=== PATIENT | female | born 1965 | race Caucasian/White ===

== ENCOUNTER 2019-11-04 19:08 | Emergency (ER) | payer MEDICAID ==
[~2019-11-04] VITALS: Ht 160 cm; Wt 63.0 kg
[~2019-11-04 19:08] MED LIST: HYDR-4833
[2019-11-04 19:31] VITALS: BP 139/88
[2019-11-04 20:38] LABS: Urine Bacteria NONE SEEN /hpf (None Seen); Urine Blood Negative /uL (Negative); Urine Specific Gravity 1.006 (1.001-1.035); Urine WBC 10 /hpf (0 - 5)
[2019-11-04 22:53] LABS: Eosinophils # (auto) 0.1 10 ^3/uL (0-0.8)
[2019-11-04 22:55] LABS: Basophils # (auto) 0.1 10 ^3/uL (0-0.2); Basophils % (auto) 1.4 % (0.0-2.0); Eosinophils % (auto) 1.4 % (0.0-7.0); Hematocrit 40.2 % (36.0-46.0); Hemoglobin 12.7 g/dL (12.2-16.2); Lymphocytes # (auto) 1.4 10 ^3/uL (0.4-5.4); Lymphocytes % (auto) 23.6 % (10.0-50.0); Mean Corpuscular Hemoglobin 23.4 pg (28.0-32.0); Mean Corpuscular Hgb Conc. 31.5 g/dL (32.0-36.0); Mean Corpuscular Volume 74.4 fL (80.0-100.0); Monocytes # (auto) 0.3 10 ^3/uL (0-1.3); Monocytes % (auto) 5.6 % (0.0-12.0); Neutrophils # (auto) 4.1 10 ^3/uL (1.6-8.6); Nucleated Red Blood Cells % 0.1 %; Platelet Count (auto) 237 10^3/uL (140-450); Red Blood Cells 5.41 10^6/uL (4.0-5.20)
[2019-11-04 23:07] LABS: Red Cell Distribution Width 26.3 % (11.8-14.3)
[2019-11-04 23:08] LABS: INR 1.02 (0.9-1.15); Partial Thromboplastin Time 30.1 sec (23.64-32.05)
[2019-11-04 23:09] LABS: Albumin 4.3 g/dL (3.4-5.0); Calcium 9.6 mg/dL (8.5-10.1); Potassium 4.5 mmol/L (3.5-5.1)
[2019-11-04 23:13] LABS: BUN/Creatinine Ratio 11.8; Bilirubin, Total 0.3 mg/dL (0.2-1.0); Total Protein 9.3 g/dL (6.4-8.2)
== END 2019-11-04 22:55 | disposition home or self-care (01) ==
LOC: ER 19:08
DX: S86.911A Strain of unspecified muscle(s) and tendon(s) at lower leg level, right leg, initial encounter (principal); N39.0 Urinary tract infection, site not specified; M54.40 Lumbago with sciatica, unspecified side; Z90.49 Acquired absence of other specified parts of digestive tract; X58.XXXA Exposure to other specified factors, initial encounter; Y93.89 Activity, other specified; Y92.89 Other specified places as the place of occurrence of the external cause; Y99.8 Other external cause status
CPT/HCPCS: 36415; 80053; 81001; 85025; 85610; 85730; 93971

== ENCOUNTER 2020-09-11 10:22 | Emergency (ER) | payer MEDICAID ==
[~2020-09-11] VITALS: Ht 160 cm; Wt 72.6 kg
[2020-09-11] VITALS (9 sets, daily range): BP systolic 104–130; BP diastolic 55–70
[2020-09-11 10:54] LABS: Basophils # (auto) 0.1 10 ^3/uL (0-0.2); Eosinophils # (auto) 0.1 10 ^3/uL (0-0.8); Monocytes # (auto) 1.1 10 ^3/uL (0-1.3)
[2020-09-11 10:55] LABS: Basophils % (auto) 0.8 % (0.0-2.0); Eosinophils % (auto) 0.5 % (0.0-7.0); Lymphocytes # (auto) 1.3 10 ^3/uL (0.4-5.4); Lymphocytes % (auto) 9.6 % (10.0-50.0); Mean Corpuscular Hemoglobin 18.8 pg (28.0-32.0); Mean Corpuscular Hgb Conc. 29.4 g/dL (32.0-36.0); Mean Corpuscular Volume 63.9 fL (80.0-100.0); Monocytes % (auto) 8.1 % (0.0-12.0); Neutrophils # (auto) 10.6 10 ^3/uL (1.6-8.6); Platelet Count (auto) 459 10^3/uL (140-450); Red Blood Cells 3.13 10^6/uL (4.0-5.20); Red Cell Distribution Width 18.7 % (11.8-14.3); White Blood Cell 13.1 10^3/uL (4.4-10.8)
[2020-09-11 10:57] LABS: Hemoglobin 5.9 g/dL (12.2-16.2)
[2020-09-11 11:12] LABS: Albumin 2.9 g/dL (3.4-5.0); Calcium 8.3 mg/dL (8.5-10.1); Potassium 3.6 mmol/L (3.5-5.1)
[2020-09-11 11:17] LABS: BUN/Creatinine Ratio 15.4; Bilirubin, Total 0.2 mg/dL (0.2-1.0)
[2020-09-11 14:53] LABS: Urine Bacteria FEW /hpf (None Seen); Urine Blood Negative /uL (Negative); Urine Specific Gravity 1.006 (1.001-1.035); Urine WBC 2 /hpf (0 - 5)
[2020-09-11 19:18] LABS: Hematocrit 28.3 % (36.0-46.0); Hemoglobin 8.8 g/dL (12.2-16.2)
== END 2020-09-11 22:10 | disposition left against medical advice (07) ==
LOC: ER 10:22
DX: D64.9 Anemia, unspecified (principal); R55 Syncope and collapse; Z90.49 Acquired absence of other specified parts of digestive tract
CPT/HCPCS: 36415; 36430; 70450; 80053; 81001; 85014; 85018; 85025; 86850; 86900; 86901; 86920; 93005; 99285; P9016

== ENCOUNTER 2020-11-29 08:00 | Emergency (ER) | payer MEDICAID ==
[~2020-11-29] VITALS: Ht 160 cm; Wt 72.6 kg
[2020-11-29 08:32] LABS: Basophils # (auto) 0.1 10 ^3/uL (0-0.2); Eosinophils # (auto) 0.1 10 ^3/uL (0-0.8)
[2020-11-29] MEDS ORDERED: FERROUS SULFATE 300 MG/5 ML ORAL LIQ GT ONE (08:45)
[2020-11-29 08:47] LABS: Albumin 2.8 g/dL (3.4-5.0); Anion Gap 9 (5-15); BUN/Creatinine Ratio 12.3; Blood Urea Nitrogen 9 mg/dL (7-18); Calcium 8.2 mg/dL (8.5-10.1); Carbon Dioxide 22 mmol/L (21-32); Chloride 107 mmol/L (98-107); GFR African American 106 mL/min; GFR Non-African American 88 mL/min; Glucose 130 mg/dL (74-106); Potassium 3.4 mmol/L (3.5-5.1); Sodium 138 mmol/L (136-145)
[2020-11-29 08:52] LABS: Alanine Aminotransferase 12 U/L (13-56); Alkaline Phosphatase 128 U/L (45-117); Aspartate Aminotransferase 10 U/L (15-37); Bilirubin, Total 0.2 mg/dL (0.2-1.0); Total Protein 7.2 g/dL (6.4-8.2)
[2020-11-29] MEDS ORDERED: SODIUM CHLORIDE 0.9% 1,000 ML IV ONE ×2 (09:00)
[2020-11-29 09:06] LABS: Basophils % (auto) 0.6 % (0.0-2.0); Hematocrit 23.7 % (36.0-46.0); Lymphocytes # (auto) 2.1 10 ^3/uL (0.4-5.4); Mean Corpuscular Hemoglobin 20.1 pg (28.0-32.0); Mean Corpuscular Hgb Conc. 29.4 g/dL (32.0-36.0); Mean Corpuscular Volume 68.4 fL (80.0-100.0); Monocytes # (auto) 0.8 10 ^3/uL (0-1.3); Monocytes % (auto) 6.5 % (0.0-12.0); Neutrophils # (auto) 8.7 10 ^3/uL (1.6-8.6); Neutrophils % (auto) 73.9 % (37.0-80.0); Nucleated Red Blood Cells % 0.1 %; Red Blood Cells 3.47 10^6/uL (4.0-5.20); White Blood Cell 11.8 10^3/uL (4.4-10.8)
[2020-11-29 09:09] LABS: Red Cell Distribution Width 21.1 % (11.8-14.3)
[2020-11-29 11:32] VITALS: BP 124/65
[2020-11-29 11:47] VITALS: BP 118/70
[2020-11-29 12:48] VITALS: BP 117/67
== END 2020-11-29 13:06 | disposition home or self-care (01) ==
LOC: ER 08:00
DX: D64.9 Anemia, unspecified (principal); Z90.49 Acquired absence of other specified parts of digestive tract; Z79.899 Other long term (current) drug therapy; Z88.8 Allergy status to other drugs, medicaments and biological substances
CPT/HCPCS: 36415; 36430; 80053; 84484; 85025; 86850; 86900; 86901; 86920; 93005; 96360; 96361; 99285; J7030; P9016

== ENCOUNTER 2021-02-02 09:51 | Emergency (ER) | payer MEDICAID ==
[~2021-02-02] VITALS: Ht 160 cm; Wt 70.8 kg
[2021-02-02 10:51] LABS: Eosinophils # (auto) 0.1 10 ^3/uL (0-0.8); Eosinophils % (auto) 0.6 % (0.0-7.0); Lymphocytes % (auto) 9.2 % (10.0-50.0); Nucleated Red Blood Cells % 0.1 %; Red Blood Cells 3.25 10^6/uL (4.0-5.20)
[2021-02-02 10:53] LABS: Basophils # (auto) 0.1 10 ^3/uL (0-0.2); Hematocrit 21.2 % (36.0-46.0); Mean Corpuscular Hemoglobin 19.2 pg (28.0-32.0); Mean Corpuscular Hgb Conc. 29.4 g/dL (32.0-36.0); Mean Corpuscular Volume 65.3 fL (80.0-100.0); Monocytes # (auto) 0.9 10 ^3/uL (0-1.3); Monocytes % (auto) 8.2 % (0.0-12.0); Neutrophils # (auto) 8.5 10 ^3/uL (1.6-8.6); White Blood Cell 10.5 10^3/uL (4.4-10.8)
[2021-02-02 11:01] LABS: Red Cell Distribution Width 23.4 % (11.8-14.3)
[2021-02-02 11:04] LABS: Hemoglobin 6.3 g/dL (12.2-16.2)
[2021-02-02 11:06] LABS: Albumin 2.6 g/dL (3.4-5.0); Amylase 17 U/L (25-115); Anion Gap 7 (5-15); Blood Urea Nitrogen 8 mg/dL (7-18); Calcium 8.6 mg/dL (8.5-10.1); Carbon Dioxide 24 mmol/L (21-32); Chloride 106 mmol/L (98-107); Glucose 133 mg/dL (74-106); Lipase 51 U/L (73-393); Potassium 3.6 mmol/L (3.5-5.1); Sodium 137 mmol/L (136-145)
[2021-02-02 11:11] LABS: Alanine Aminotransferase 12 U/L (13-56); Alkaline Phosphatase 115 U/L (45-117); Aspartate Aminotransferase 10 U/L (15-37); BUN/Creatinine Ratio 10.1; Bilirubin, Total 0.2 mg/dL (0.2-1.0); GFR African American 97 mL/min; GFR Non-African American 80 mL/min; Total Protein 7.3 g/dL (6.4-8.2)
[2021-02-02 12:29] VITALS: BP 110/54
[2021-02-02 12:45] VITALS: BP 107/56
[2021-02-02] MEDS ORDERED: HYDROcodone-ACET 5/325MG TAB PO ONE ×2 (13:45→18:30)
[2021-02-02 15:13] VITALS: BP 117/62
[2021-02-02 15:41] VITALS: BP 117/62
[2021-02-02 15:56] VITALS: BP 108/54
[2021-02-02 19:41] VITALS: BP 119/65
== END 2021-02-02 19:45 | disposition home or self-care (01) ==
LOC: ER 09:51
DX: R10.13 Epigastric pain (principal); D64.89 Other specified anemias; E46 Unspecified protein-calorie malnutrition; Z68.27 Body mass index [BMI] 27.0-27.9, adult; Z90.49 Acquired absence of other specified parts of digestive tract; Z79.899 Other long term (current) drug therapy; Z88.8 Allergy status to other drugs, medicaments and biological substances
CPT/HCPCS: 36415; 36430; 74176; 80053; 82150; 83690; 84484; 85025; 86850; 86900; 86901; 86920; 99285; P9016; 93005

== ENCOUNTER 2021-05-07 07:42 | Emergency (ER) | payer MEDICAID ==
[~2021-05-07] VITALS: Ht 160 cm; Wt 63.5 kg
[2021-05-07 07:42] VITALS: BP 102/62
[2021-05-07 12:12] LABS: Basophils # (auto) 0.1 10 ^3/uL (0-0.2); Eosinophils # (auto) 0.1 10 ^3/uL (0-0.8)
[2021-05-07 12:14] LABS: Basophils % (auto) 0.6 % (0.0-2.0); Eosinophils % (auto) 0.5 % (0.0-7.0); Hematocrit 24.5 % (36.0-46.0); Hemoglobin 7.5 g/dL (12.2-16.2); Mean Corpuscular Hemoglobin 23.5 pg (28.0-32.0); Mean Corpuscular Hgb Conc. 30.7 g/dL (32.0-36.0); Mean Corpuscular Volume 76.4 fL (80.0-100.0); Monocytes # (auto) 1.4 10 ^3/uL (0-1.3); Monocytes % (auto) 8.8 % (0.0-12.0); Neutrophils # (auto) 12.1 10 ^3/uL (1.6-8.6); Neutrophils % (auto) 77.1 % (37.0-80.0); Red Blood Cells 3.21 10^6/uL (4.0-5.20); White Blood Cell 15.7 10^3/uL (4.4-10.8)
[2021-05-07 12:15] LABS: Red Cell Distribution Width 22.9 % (11.8-14.3)
[2021-05-07 12:25] LABS: Albumin 1.6 g/dL (3.4-5.0); Potassium 3.7 mmol/L (3.5-5.1)
[2021-05-07 12:28] LABS: BUN/Creatinine Ratio 11.7; Bilirubin, Total 0.2 mg/dL (0.2-1.0); Total Protein 6.7 g/dL (6.4-8.2)
[2021-05-07 12:36] LABS: INR 1.16 (0.9-1.15); Partial Thromboplastin Time 31.9 sec (23.6-33.0)
== END 2021-05-07 16:58 | disposition left against medical advice (07) ==
LOC: ER 07:42
DX: D64.9 Anemia, unspecified (principal); Z90.49 Acquired absence of other specified parts of digestive tract; Z90.89 Acquired absence of other organs; Z20.822 Contact with and (suspected) exposure to COVID-19; Z53.29 Procedure and treatment not carried out because of patient's decision for other reasons
CPT/HCPCS: 36415; 80053; 85025; 85610; 85730; 86850; 86900; 86901; 87426; 93005

== ENCOUNTER 2021-05-09 09:12 | Emergency (ER) | payer MEDICAID ==
[~2021-05-09] VITALS: Ht 160 cm; Wt 64.9 kg
[2021-05-09 10:50] LABS: Basophils # (auto) 0.1 10 ^3/uL (0-0.2); Eosinophils # (auto) 0.1 10 ^3/uL (0-0.8); Monocytes # (auto) 0.9 10 ^3/uL (0-1.3); White Blood Cell 11.4 10^3/uL (4.4-10.8)
[2021-05-09 10:54] LABS: Basophils % (auto) 0.8 % (0.0-2.0); Eosinophils % (auto) 0.7 % (0.0-7.0); Lymphocytes # (auto) 0.9 10 ^3/uL (0.4-5.4); Lymphocytes % (auto) 7.7 % (10.0-50.0); Mean Corpuscular Hgb Conc. 30.4 g/dL (32.0-36.0); Mean Corpuscular Volume 75.7 fL (80.0-100.0); Monocytes % (auto) 7.8 % (0.0-12.0); Neutrophils # (auto) 9.4 10 ^3/uL (1.6-8.6); Red Blood Cells 2.91 10^6/uL (4.0-5.20)
[2021-05-09 10:59] LABS: INR 1.14 (0.9-1.15); Partial Thromboplastin Time 27.6 sec (23.6-33.0)
[2021-05-09 11:03] LABS: Potassium 3.5 mmol/L (3.5-5.1)
[2021-05-09 11:06] LABS: Calcium 7.9 mg/dL (8.5-10.1)
[2021-05-09 11:28] LABS: Albumin 1.5 g/dL (3.4-5.0); Bilirubin, Total 0.2 mg/dL (0.2-1.0); Total Protein 6.2 g/dL (6.4-8.2)
[2021-05-09 12:16] LABS: Red Cell Distribution Width 23.1 % (11.8-14.3)
[2021-05-09 12:18] LABS: Hemoglobin 6.7 g/dL (12.2-16.2)
[2021-05-09 18:26] VITALS: BP 106/73
[2021-05-09 18:48] VITALS: BP 112/79
[2021-05-09 20:12] VITALS: BP 112/70
[2021-05-09 20:30] VITALS: BP 118/62
[2021-05-09 21:30] VITALS: BP 106/75
[2021-05-09 21:45] VITALS: BP 121/72
[2021-05-09 23:27] LABS: Hemoglobin 9.9 g/dL (12.2-16.2)
== END 2021-05-09 23:40 | disposition home or self-care (01) ==
LOC: ER 09:12
DX: D64.9 Anemia, unspecified (principal); R42 Dizziness and giddiness; Z90.49 Acquired absence of other specified parts of digestive tract
CPT/HCPCS: 36415; 36430; 80053; 85014; 85018; 85025; 85610; 85730; 86850; 86900; 86901; 86920; 93005; 99285; P9016